=== PATIENT | male | born 1965 | race Caucasian/White ===

== ENCOUNTER 2017-05-26 14:47 | Emergency (ER) | payer OTHER ==
[~2017-05-26] VITALS: Ht 165.1 cm; Wt 69.0 kg
[~2017-05-26 14:47] MED LIST: GLIP-95 PO; MAG355OR14 PO; METF1000 PO; NAPR-260 PO; ZOC10 PO
[2017-05-26 14:52] VITALS: Ht 165.1 cm; Wt 69.0 kg
[2017-05-26] MEDS ORDERED: ASPIRIN 81 MG TAB PO STA (15:59)
[2017-05-26 16:35] LABS: BASOPHILS % 0.6 % (0.0-2.0); EOSINOPHILS # 0.1 10^3/ul (0.0-0.5); EOSINOPHILS % 2.6 % (0.0-7.0); HEMATOCRIT 43.3 % (42.0-52.0); HEMOGLOBIN 14.7 g/dl (14.0-18.0); LYMPHOCYTES # 2.4 10^3/ul (0.8-2.9); LYMPHOCYTES % 44.1 % (15.0-51.0); MEAN CORPUSCULAR HEMOGLOBIN 29.1 pg (29.0-33.0); MEAN CORPUSCULAR HGB CONC 33.9 g/dl (32.0-37.0); MEAN CORPUSCULAR VOLUME 85.6 fl (82.0-101.0); MEAN PLATELET VOLUME 9.5 fl (7.4-10.4); MONOCYTE # 0.4 10^3/ul (0.3-0.9); MONOCYTES % 7.2 % (0.0-11.0); NEUTROPHIL # 2.5 10^3/ul (1.6-7.5); NEUTROPHILS % 45.3 % (39.0-77.0); PLATELET COUNT 203 10^3/UL (140-415); RED BLOOD COUNT 5.06 10^6/ul (4.70-6.10); RED CELL DISTRIBUTION WIDTH 12.5 % (11.5-14.5); WHITE BLOOD COUNT 5.4 10^3/ul (4.8-10.8)
--- NOTE | 2017-05-26 16:39 | RADRPT ---
PROCEDURE: XR Chest. CLINICAL INDICATION: Chest pain. TECHNIQUE: Single frontal view. COMPARISON: 02/04/2016. FINDINGS: The lungs are clear. The heart size is normal. There is no pleural effusion. There is no pneumothorax. IMPRESSION: 1. Normal chest radiograph. RPTAT: QQ .Ramiro Mosley MD, MD Date Time Electronically viewed and signed by .Ramiro Mosley MD, on 05/26/2017 16:38 .R/
--- NOTE | 2017-05-26 16:50 | ERD ---
ER Documentation Chief Complaint Date/Time DATE: 05/26/17 TIME: 16:50 Chief Complaint Patient complains of chest pain that radiates to arms HPI This is a 51-year-old male history of diabetes type 2 presenting to the emergency department complaining of intermittent, sharp moderate left-sided chest pain that radiates to the lateral shoulder for the past 2 days. Patient states that the pain lasts for about an hour and then resolved. He denies any diaphoresis, nausea, vomiting, shortness of breath. Patient denies any family or personal history of heart disease. Has tried baby aspirin in the morning. She admits to having bilateral numbness and tingling in both hands that comes and goes. ROS All systems reviewed and are negative except as per history of present illness. Medications Home Meds Active Scripts Acetaminophen* (Tylenol*) 325 Mg Tablet, 2 TAB PO Q6 Y for PAIN AND OR ELEVATED TEMP, #20 TAB Prov:ALLAN RODNEY PA-C 05/26/17 Mag Hydrox/Al Hydrox/Simeth (Maalox Advanced Suspension) 355 Ml Oral.susp, 2 TSP PO TID for PAIN, #24 OZ Prov:KARLA ERVIN MD 06/17/16 Naproxen* (Naprosyn*) 500 Mg Tablet, 500 MG PO BID Y for PAIN AND/OR INFLAMMATION, #30 TAB Prov:KARLA ERVIN MD 06/17/16 Reported Medications Simvastatin (Simvastatin) 10 Mg Tablet, 10 MG PO HS, TAB 03/06/15 Glipizide* (Glipizide*) 10 Mg Tablet, 10 MG PO DAILY, TAB 06/14/14 Metformin Hcl* (Metformin Hcl*) 1,000 Mg Tablet, 1000 MG PO BID, TAB 06/14/14 Allergies Allergies: Coded Allergies: No Known Allergy (Unverified , 06/17/16) PMhx/Soc History of Surgery: Yes (RT SHOULDER SX) Anesthesia Reaction: No Hx Neurological Disorder: No Hx Respiratory Disorders: No Hx Cardiac Disorders: No Hx Psychiatric Problems: No Hx Miscellaneous Medical Probl: Yes (DM) Hx Alcohol Use: Yes (SOCIALLY) Hx Substance Use: No Hx Tobacco Use: No Physical Exam Vitals Vital Signs Date Time Temp Pulse Resp B/P Pulse Ox O2 Delivery O2 Flow Rate FiO2 05/26/17 14:52 98.3 67 20 145/76 98 Physical Exam GENERAL: no acute distress, non-toxic appearing, sitting up in bed HENT: normocephalic/atraumatic EYES: conjunctiva is normal NECK: no noticeable or palpable swelling, no carotid bruits, no JVD CARDIOVASCULAR: RRR, good S1S2, no murmurs or gallops heard PULM: clear to auscultation, no use of accessory muscles, no crackles or wheezes. ABDOMEN: normal bowel sounds, abdomen soft and nontender EXT: no edema, cyanosis or clubbing MUSCULOSKELETAL: 5/5 strength, normal range of motion, no swollen or erythematous joints. NEURO: alert and oriented SKIN: no rashes, skin warm and dry, no erythematous areas BREAST: breast exam was not relevant, therefore not preformed PSYCH: normal mood and mentation, denies suicidal or homicidal ideation and thoughts Result Diagram: 05/26/17 1611 05/26/17 1611 Results 24 hrs Laboratory Tests Test 05/26/17 16:11 White Blood Count 5.410^3/ul Red Blood Count 5.0610^6/ul Hemoglobin 14.7g/dl Hematocrit 43.3% Mean Corpuscular Volume 85.6fl Mean Corpuscular Hemoglobin 29.1pg Mean Corpuscular Hemoglobin Concent 33.9g/dl Red Cell Distribution Width 12.5% Platelet Count 10489^3/UL Mean Platelet Volume 9.5fl Neutrophils % 45.3% Lymphocytes % 44.1% Monocytes % 7.2% Eosinophils % 2.6% Basophils % 0.6% Nucleated Red Blood Cells % 0.0/100WBC Neutrophils # 2.510^3/ul Lymphocytes # 2.410^3/ul Monocytes # 0.410^3/ul Eosinophils # 0.110^3/ul Basophils # 0.010^3/ul Nucleated Red Blood Cells # 0.010^3/ul Sodium Level 141mmol/L Potassium Level 4.0mmol/L Chloride Level 108mmol/L Carbon Dioxide Level 25mmol/L Anion Gap 12 Blood Urea Nitrogen 20mg/dl Creatinine 0.71mg/dl Glucose Level 172mg/dl Calcium Level 9.1mg/dl Troponin I < 0.012ng/ml Current Medications Medications (Trade) Dose Ordered Sig/Brooks Route PRN Reason Start Time Stop Time Status Last Admin Dose Admin Aspirin (Aspirin) 162 mg ONCE STAT PO 05/26/17 15:59 05/26/17 16:04 DC Procedures/MDM This is a 51-year-old male with DMII presenting emergency department complaining of intermittent left-sided chest pain that radiates down to his left shoulder. Patient does not have any evidence of STEMI, I have a low suspicion for ACS or acute cardiopulmonary conditions. Patient has a low heart score. In the ED as EKG was done did not show any evidence of STEMI. Chest x- ray did not show any evidence of infiltrates, pneumothorax or pleural effusion. 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 I discussed with him to return to the emergency department for any worsening signs or symptoms. I have consulted my supervising physician regarding this case who has helped me with the management regarding this problem. EKG: read and signed off by myself and Rate/Rhythm: Normal Sinus Rhythm 75 bpm QRS, ST, T-waves: No changes consistent w/ acute ischemia Impression: No evidence of ischemia or arrhythmia Chest X-ray 1V Interpreted by me: Soft Tissue: No acute abnormalities Bones: No acute abnormalities Mediastinum/Cardiac Silhouette/Lungs: No acute abnormalities Troponin was within normal limits. Departure Diagnosis: Primary Impression: Chest pain Condition: Stable ALLAN RODNEY PA-C May 26, 2017 16:50
[2017-05-26 16:58] LABS: ANION GAP 12 (8-16); BLOOD UREA NITROGEN 20 mg/dl (7-20); CALCIUM 9.1 mg/dl (8.4-10.2); CARBON DIOXIDE 25 mmol/L (21-31); CHLORIDE 108 mmol/L (97-110); CREATININE 0.71 mg/dl (0.61-1.24); GLUCOSE 172 mg/dl (70-220); SODIUM 141 mmol/L (135-144)
[2017-05-26 17:14] LABS: TROPONIN-I < 0.012 ng/ml (0.00-0.12)
[2017-05-26] MEDS ORDERED: ACET325T33 PO (17:22)
== END 2017-05-26 17:44 | disposition home or self-care (01) ==
LOC: FTE 14:47
DX: R07.9 Chest pain, unspecified (principal); E11.9 Type 2 diabetes mellitus without complications; Z79.84 Long term (current) use of oral hypoglycemic drugs
CPT/HCPCS: 36415; 71010; 80048; 84484; 85025; Z7502

== ENCOUNTER 2018-12-28 09:23 | Day surgery (SDC) | payer OTHER ==
[~2018-12-28] VITALS: Ht 167.6 cm; Wt 68.7 kg
[~2018-12-28 09:23] MED LIST changes: +ACET325T33 PO; -GLIP-95 PO; +GLIP10TA14 PO; +HYDR-4011 PO; +HYDR-843 PO; -METF1000 PO; +METF100010 PO; -NAPR-260 PO; +NAPR-985 PO; +RANI150T5 PO
[2018-12-28 09:49] VITALS: Ht 167.6 cm; Wt 68.7 kg
[2018-12-28 10:30] VITALS: BP 147/83; PULSE 71; RESP 18
[2018-12-28] MEDS ORDERED: MIDAZOLAM 1 MG/ML 2 ML INJ ONE ×2 (11:04→11:05)
[2018-12-28] MEDS ORDERED: FENTAnyl 50 MCG/ML VIAL ONE (11:04)
[2018-12-28 11:28] VITALS: BP 132/81; PULSE 66
== END 2018-12-28 13:24 | disposition home or self-care (01) ==
LOC: GIL 09:23
PROVIDERS: ATTEND Internal Medicine Gastroenterology
DX: Z12.11 Encounter for screening for malignant neoplasm of colon (principal); D12.5 Benign neoplasm of sigmoid colon; K64.8 Other hemorrhoids; E11.9 Type 2 diabetes mellitus without complications
CPT/HCPCS: 45380; 82962; 88305; J2250; J3010; Z7610

== ENCOUNTER 2019-04-06 05:19 | Emergency (ER) | payer OTHER ==
[~2019-04-06] VITALS: Ht 162.6 cm; Wt 69.0 kg
[~2019-04-06 05:19] MED LIST changes: -ACET325T33 PO; +CYCL10TA7 PO; -HYDR-843 PO; -MAG355OR14 PO; -RANI150T5 PO
[2019-04-06 05:21] VITALS: BP 141/78; PULSE 61; RESP 17; Ht 162.6 cm; Wt 69.0 kg
[2019-04-06] MEDS ORDERED: KETOROLAC 60 MG INJ IM STA (06:04)
--- NOTE | 2019-04-06 06:34 | ERD ---
ER Documentation Chief Complaint Chief Complaint Right sided back pain x 2 days HPI 33-year-old male presenting with right-sided back pain x2 days. Denies any traumatic injuries falls. His pain is worse with movement. He has no pain with urination no hematuria. He has not taken medications for his symptoms. Denies fevers. He states the pain is constant. He denies any chest pain or shortness of breath. Denies diarrhea or fevers. Medical history is diabetes on pills. NKDA. Surgical history right shoulder surgery history 2 years ago. Social history denies ROS All systems reviewed and are negative except as per history of present illness. Medications Home Meds Active Scripts Hydrocodone/Acetaminophen ([place] 5-325 Tablet) 1 Each Tablet, 1 TAB PO Q6H PRN for PAIN, #7 TAB Prov:IMTIAZ KRAMER PA-C 04/06/19 Cyclobenzaprine Hcl* (Cyclobenzaprine Hcl*) 10 Mg Tablet, 10 MG PO TID, #15 TAB Prov:IMTIAZ KRAMER PA-C 04/06/19 Naproxen* (Naprosyn*) 500 Mg Tablet, 500 MG PO BID PRN for PAIN AND/OR INFLAMMATION, #30 TAB Prov:IMTIAZ KRAMER PA-C 04/06/19 Reported Medications Simvastatin (Simvastatin) 10 Mg Tablet, 10 MG PO HS, TAB 03/06/15 Glipizide* (Glipizide*) 10 Mg Tablet, 10 MG PO DAILY, TAB 06/14/14 Metformin Hcl* (Metformin Hcl*) 1,000 Mg Tablet, 1000 MG PO BID, TAB 06/14/14 Allergies Allergies: Coded Allergies: No Known Allergy (Unverified , 06/17/16) PMhx/Soc History of Surgery: Yes (SHOULDER SX) Anesthesia Reaction: No Hx Neurological Disorder: No Hx Respiratory Disorders: No Hx Cardiac Disorders: No Hx Psychiatric Problems: No Hx Miscellaneous Medical Probl: Yes (HYPERLIPIDEMIA) Hx Alcohol Use: Yes (SOCIALLY) Hx Substance Use: No Hx Tobacco Use: No Smoking Status: Never smoker FmHx Family History: No diabetes, No coronary disease, No other Physical Exam Vitals Vital Signs Date Temp Pulse Resp B/P (MAP) Pulse Ox O2 O2 Flow FiO2 Time Delivery Rate 04/06/19 97.6 61 17 141/78 99 05:21 (99) Physical Exam GENERAL: The patient is well-appearing, well-nourished, in no acute distress HEENT: Atraumatic. Conjunctivae are pink. Pupils equal, round, and reactive to light. There is no scleral icterus. Tympanic membranes clear bilaterally. Oropharynx clear. CHEST: Clear to auscultation bilaterally. There are no rales, wheezes or rhonchi. HEART: Regular rate and rhythm. No murmurs, clicks, rubs or gallops. ABDOMEN:Soft, nontender and nondistended. Good bowel sounds. No rebound or gua rding. No gross peritonitis. No gross organomegaly or masses. BACK: No midline or flank tenderness. SKIN: There is no apparent rash or petechiae. The skin is warm and dry. Results 24 hrs Laboratory Tests Test 04/06/19 06:25 Bedside Urine pH (LAB) 5.5 Bedside Urine Protein (LAB) Negative Bedside Urine Glucose (UA) >=1.0% Bedside Urine Ketones (LAB) Negative Bedside Urine Blood Negative Bedside Urine Nitrite (LAB) Negative Bedside Urine Leukocyte Esterase (L Negative Current Medications Medications Dose Sig/Brooks Start Time Status Last (Trade) Ordered Route PRN Stop Time Admin Dose Reason Admin Ketorolac 60 mg ONCE STAT 04/06/19 DC 04/06/19 Tromethamine IM 06:04 06:13 (Toradol) 04/06/19 06:05 Procedures/MDM ER course: Urinalysis negative. MDM: 53-year-old male presenting with back pain and right-sided flank pain. I have considered nephrolithiasis or septic stone but have low suspicion. Patient's exam is non-concerning patient's vitals are stable and patient's urine is within normal limits. I do not feel blood work or imaging is indicated. I have low suspicion for acute abdominal emergency including but not limited to a ppendicitis, choledocholithiasis, cholecystitis, pancreatitis, or cholangitis. I have low suspicion for bowel obstruction. Patient's abdominal exam is within normal limits. Patient's pain is likely muscular skeletal. I will discharge patient with strict ER precautions and supportive medications. Patient is told symptoms change or worsen to return immediately to the ER. Patient is recommended to follow-up with primary care within 1 to 2 days for close evaluation. All questions answered at discharge Departure Diagnosis: Primary Impression: Back pain Condition: Stable Patient Instructions: Back Pain (Acute Or Chronic) Referrals: ILIA GALLAGHER (PCP) Additional Instructions: FOLLOW UP WITH YOUR PRIMARY CARE PHYSICIAN TOMORROW.Return to this facility if you are not improving as expected. IMTIAZ KRAMER PA-C Apr 06, 2019 06:34
== END 2019-04-06 06:33 | disposition home or self-care (01) ==
LOC: FTE 05:19
DX: M54.9 Dorsalgia, unspecified (principal); E11.9 Type 2 diabetes mellitus without complications; Z79.84 Long term (current) use of oral hypoglycemic drugs
CPT/HCPCS: 81003; 96372; J1885; Z7502